=== PATIENT | male | born 1980 | race Caucasian/White ===

== ENCOUNTER → 2017-05-03 | Outpatient (CLI) | payer MEDICARE, MEDICAID | LOC: LAB 16:20 | PROVIDERS: ATTEND Nurse Practitioner Family | DX: R56.9 Unspecified convulsions (principal) | CPT/HCPCS: 36415; 80156 ==

== ENCOUNTER 2017-05-19 23:28 | Emergency (ER) | payer MEDICARE, MEDICAID ==
[~2017-05-19] VITALS: Ht 157.5 cm; Wt 49.9 kg
[2017-05-19 23:33] VITALS: BP 133/96
[2017-05-19] MEDS ORDERED: [UNRECOGNIZED DRUG - CODE] PO (23:33)
[2017-05-19] MEDS ORDERED: SCOT TD (23:33)
--- NOTE | 2017-05-19 23:42 | ER Report ---
History and Physical Time Seen By MD: 23:41 Hx. of Stated Complaint: PT STATES THAT RIGHT WRIST HURTS. HAS HURT FOR ABOUT TWO HOURS. NO INJURY THAT WE ARE AWARE OF. GOES [place] DURING THE DAY. HPI/ROS CHIEF COMPLAINT: Right wrist pain HISTORY OF PRESENT ILLNESS: 37 year-old male brought in by his mom with concerns about his right wrist. He has a chronic contraction secondary to cerebral palsy. He also is cognitively impaired. She was bathing him tonight when trying to get him out of fissure. He seemed like he had a lot of pain in his right wrist. There is a hai on his right cheek where it appears she's fallen and sustained an abrasion. He attends [facility] during the day for activities. His mom is unsure when his last tetanus shot was. He's likely outdated. Patient receives Botox injections in his right arm. He also has extensive OT for his right wrist pain and contracture. Allergies: Coded Allergies: Penicillins (Verified Allergy, Unknown, UNKNOWN, 05/19/17) Home Meds Reported Medications Scopolamine (TRANSDERM-SCOP) 1.5 Mg Patch, 1.5 MG TD EVERY TWO DAYS, PATCH 05/19/17 Carbamazepine (TEGRETOL) 100 Mg/5 Ml Susp, 5 ML PO BID 05/19/17 Reviewed Nurses Notes: Yes Old Medical Records Reviewed: Yes Hx Substance Use Disorder: No Hx Alcohol Use: No Constitutional Vital Sign - Last 24 Hours 05/19/17 23:33 Temp 98.2 Pulse 79 Resp 14 B/P (MAP) 133/96 Pulse Ox 96 O2 Delivery Room Air Physical Exam General appearance: Alert no distress. Palpation of the head and neck reveals no tenderness or trauma HEENT: There is a tiny abrasion to the right cheek. His eyes appear without traumatic injury. Facial bones. Intact on palpation. There is no dental trauma on examination of the mouth Respiratory: Chest is non tender, lungs are clear to auscultation. Cardiac: Regular rate and rhythm Extremities: Right wrist shows obvious contraction deformity. There is no bruising, abrasion or soft tissue swelling noted. There is no palpable tenderness. All digits are neurovascularly intact. The hand can be straightened with passive gentle range of motion. DIFFERENTIAL DIAGNOSIS: After history and physical exam differential diagnosis was considered for sprain, strain, fracture, dislocation, contusion. Medical Decision Making EKG/Imaging EKG Interpretation X-ray: Right wrist, 3 views was obtained. I viewed the images myself on the PACS system. My interpretation of the images is: No fracture no dislocation or malalignment. The radiologist interpretation had no clinically significant variation from this interpretation. ED Course/Re-evaluation ED Course Patient was admitted to an examination room. H&P was done. The difficult diagnosis was considered. On clinical examination, there are no significant findings. The patient has a small abrasion on his right cheek. His tetanus status is updated. His diagnostic x-rays are unremarkable. His mom's advised to conservative treatment plan of ibuprofen and watchful waiting. Decision to Disposition Date: May 20, 2017 Decision to Disposition Time: 00:57 Depart Departure Latest Vital Signs Vital Signs Date Time Temp Pulse Resp B/P (MAP) Pulse Ox O2 Delivery O2 Flow Rate FiO2 05/19/17 23:33 98.2 79 14 133/96 96 Room Air Impression: Primary Impression: Right wrist sprain Additional Impressions: Contracture, right wrist Facial abrasion Cerebral palsy Condition: Improved Disposition: HOME OR SELF-CARE Referrals: BECKY MARSH (PCP) Patient Instructions: Wrist Sprain (ED) Additional Instructions: Give ibuprofen 200 mg 2 tablets 3 times a day as needed for pain relief Follow-up with your primary care if unimproved in 3-5 days. Problem Qualifiers Primary Impression: Right wrist sprain Encounter type: initial encounter Qualified Codes: S63.501A - Unspecified sprain of right wrist, initial encounter Additional Impressions: Facial abrasion Encounter type: initial encounter Qualified Codes: S00.81XA - Abrasion of other part of head, initial encounter Cerebral palsy Cerebral palsy type: unspecified type Qualified Codes: G80.9 - Cerebral palsy, unspecified PUNEET DELGADO DO May 19, 2017 23:42
[2017-05-20] MEDS ORDERED: DIPHTH/TETANUS/ACEL. PERTUSSIS IM ONLY ONE (00:05)
--- NOTE | 2017-05-20 01:02 | RADIOLOGY IMAGING REPORT ---
FACILITY: [facility] - [place] PATIENT NAME: Ilan Lockett : 1980 MR: [id number] V: [id number] EXAM DATE: ORDERING PHYSICIAN: PUNEET DELGADO TECHNOLOGIST: Location: [facility] Patient: Ilan Lockett : 1980 Visit/Account:[id number] Date of Sevice: 05/19/2017 WRIST RIGHT MIN 3 VIEW COMPARISONS: None. ADDITIONAL PERTINENT HISTORY: Pain after fall. Chronic contracture. FINDINGS: Osseous structures: Negative. Joint spaces: The right hand is held in dorsiflexion and is deviated ulnarly. Joint spaces are otherw ise unremarkable. Surrounding soft tissues: Negative. IMPRESSION: 1. No acute appearing bony abnormalities involving the right wrist. Report Dictated By: Ramirez Drake MD at 05/20/2017 12:56 AM Report E-Signed By: Ramirez Drake MD at 05/20/2017 12:58 AM WSN:[id number]
== END 2017-05-20 01:13 | disposition home or self-care (01) ==
LOC: ER 23:41
DX: S63.501A Unspecified sprain of right wrist, initial encounter (principal); S00.81XA Abrasion of other part of head, initial encounter; G80.9 Cerebral palsy, unspecified
CPT/HCPCS: 99282